=== PATIENT | female | born 1980 | race Caucasian/White ===

== ENCOUNTER 2017-05-11 15:28 | Emergency (ER) | payer MEDICAID ==
--- NOTE | 2017-05-11 16:36 | ED Physician Documentation ---
PD HPI URI - Stated complaint Stated Complaint: FATIGUE/DIARRHEA - Chief complaint Chief Complaint: Abd Pain - History obtained from History obtained from: Patient - History of Present Illness Timing - onset: How many days ago (has had nausea and less appetite, some discomfort with eating for couple of weeks, and then with diarrhea the past 2-3 days. No noted blood nor melena.) Timing duration: Days Timing details: Gradual onset Associated symptoms: NVD. No: Fever, Chills, Sore throat, Dry cough, Dyspnea Contributing factors: No: Sick contact, Travel, Immunocompromised Similar symptoms before: Has not had sx before Recently seen: Not recently seen Review of Systems Constitutional: reports: Fatigue. denies: Fever, Chills, Myalgias Nose: denies: Rhinorrhea / runny nose, Congestion Throat: denies: Sore throat Cardiac: denies: Chest pain / pressure, Palpitations Respiratory: denies: Dyspnea, Cough GI: reports: Nausea, Diarrhea. denies: Abdominal Pain, Abdominal Swelling, Vomiting, Constipation, Hematemesis, Bloody / black stool : denies: Dysuria, Frequency Musculoskeletal: denies: Neck pain, Back pain Neurologic: reports: Generalized weakness. denies: Focal weakness, Numbness, Altered mental status, Headache, Head injury Endocrine: denies: Weight loss, Weight gain, Easy bruising / bleeding Immunocompromised: denies: Immunocompromised PD PAST MEDICAL HISTORY - Past Medical History Past Medical History: Yes Psych: Bipolar disorder - Past Surgical History Past Surgical History: Yes General: EGD - Present Medications Home Medications: Ambulatory Orders Medication Instructions Recorded Confirmed Diphenoxylate HCl/Atropine 1 each PO Q6H PRN #12 tablet 05/11/17 [Diphenoxylate-Atrop 2.5-0.025] Famotidine [Pepcid] 20 mg PO ONCE #30 tablet 05/11/17 Ondansetron Odt [Zofran] 4 mg TL Q6H PRN #15 tablet 05/11/17 chlordiazePOXIDE [Librium] 25 mg PO Q6H PRN #30 capsule 05/11/17 - Allergies Allergies/Adverse Reactions: Allergies Allergy/AdvReac Type Severity Reaction Status Date / Time No Known Drug Allergies Allergy Verified 04/13/13 11:07 - Social History Does the pt smoke?: No Smoking Status: Former smoker Does the pt drink ETOH?: Yes Does the pt have substance abuse?: No - Family History Family history: reports: Non contributory PD ED PE NORMAL - Vitals Vital signs reviewed: Yes - General General: Alert and oriented X 3, Well developed/nourished, Other (glassy eyed but no slurring of speech.) - HEENT HEENT: Ears normal - Cardiac Cardiac: No murmur. No: RRR (regular but fast) - Respiratory Respiratory: No respiratory distress, Clear bilaterally - Abdomen Abdomen: Normal bowel sounds, Soft, Non distended, No organomegaly, Other ( tender in epigastric area without guarding) - Female Female : Deferred - Rectal Rectal: Deferred - Back Back: No CVA TTP - Derm Derm: Normal color, Warm and dry - Extremities Extremities: No deformity, No tenderness to palpate, Normal ROM s pain, No edema , No calf tenderness / cord - Neuro Neuro: Alert and oriented X 3, No motor deficit, Normal speech Eye Opening: Spontaneous Motor: Obeys Commands Verbal: Oriented GCS Score: 15 - Psych Psych: Normal mood Results - Vitals Vitals: Vital Signs - 24 hr 05/11/17 05/11/17 15:36 19:18 Temperature 36.8 C Heart Rate 113 H 80 Respiratory 22 14 Rate Blood Pressure 138/96 H 116/80 O2 Saturation 96 98 Oxygen O2 Source Room air - Labs Labs: Laboratory Tests 05/11/17 05/11/17 15:35 15:35 WBC 3.0 L RBC 4.05 L Hgb 13.9 Hct 41.9 MCV 103.4 H MCH 34.2 H MCHC 33.1 RDW 14.4 Plt Count 106 L MPV 7.9 Neut # 1.5 Lymph # 1.1 L Smyth # 0.2 Eos # 0.0 Baso # 0.0 Absolute Nucleated RBC 0.02 Nucleated RBC % 0.6 Sodium 138 Potassium 3.6 Chloride 100 L Carbon Dioxide 24 Anion Gap 14.0 H BUN 9 Creatinine 0.5 Estimated GFR (MDRD) 139 Glucose 81 Calcium 8.3 L Magnesium 2.1 Total Bilirubin 0.9 AST 144 H ALT 68 H Alkaline Phosphatase 64 Total Protein 7.8 Albumin 4.7 Globulin 3.1 Albumin/Globulin Ratio 1.5 Lipase 23 Ethyl Alcohol 419.6 PD MEDICAL DECISION MAKING - ED course Complexity details: reviewed results, re-evaluated patient (feeling better with fluids and meds. Will give Rx to help with likely withdrawal. Had been to alcohol treatment recently and had 17 weeks sober, per patient. ), considered differential (having upset stomach and diarrhea. Could be viral illness currently too, but stomach is more likely alcoholic gastritis. She initially said she had not drank for several days, but her BA is quite high. She said she might be interested in alcohol detox programs. Unfortunately [employer] is out for the day. I encouraged her to come back tomorrow if still feeling badly to get info about programs. Given info booklet with resources numbers. She says she would stop drinking and is staying with her mom goran. She was reluctant to admit drinking and the initial history given did not include that as an issue. Unfortunately it may not seem she is really ready to want to stop.), d/w patient Departure - Departure Disposition: 01 Home, Self Care Clinical Impression: Nausea, Alcoholism Diarrhea Qualifiers: Diarrhea type: unspecified type Qualified Code(s): R19.7 - Diarrhea, unspecified Gastritis Qualifiers: Gastritis type: alcoholic Chronicity: acute Gastritis bleeding: without bleeding Qualified Code(s): K29.20 - Alcoholic gastritis without bleeding Alcohol intoxication Qualifiers: Complication of substance-induced condition: uncomplicated Qualified Code(s): F10.920 - Alcohol use, unspecified with intoxication, uncomplicated Condition: Stable Record reviewed to determine appropriate education?: Yes Instructions: ED Gastritis Follow-Up: [facility] [Provider Group] Prescriptions: chlordiazePOXIDE [Librium] 25 mg PO Q6H PRN #30 capsule PRN Reason: Anxiety Diphenoxylate HCl/Atropine [Diphenoxylate-Atrop 2.5-0.025] 1 each PO Q6H PRN # 12 tablet PRN Reason: Diarrhea Famotidine [Pepcid] 20 mg PO ONCE #30 tablet Ondansetron Odt [Zofran] 4 mg TL Q6H PRN #15 tablet PRN Reason: Nausea / Vomiting Comments: Drink lots of fluids. No alcohol. For the shakiness and withdrawal symptoms you will have, use Librium 1 or 2 tablets every 6 hours if needed and try to slowly taper down the amount and stretch the interval over the next several days to week. Famotidine daily for reducing stomach acids. Ondansetron if needed for nausea. Use Lomotil if needed for diarrhea. There may be some element of a little stomach virus. However a large part of it is likely irritation of the stomach and intestines from the alcohol. Recheck if not improving over the next few days. Forms: Activity restrictions Discharge Date/Time: 05/11/17 19:25
[2017-05-11] MEDS ORDERED: SODIUM CHLORIDE 0.9% 1,000 ML IV ONE ×2 (16:57→16:58)
[2017-05-11] MEDS ORDERED: ONDANSETRON 4 MG/2 ML VIAL IVP STA (16:57)
[2017-05-11] MEDS ORDERED: DIPHENOX/ATROPINE 2.5/0.025 MG TABLET PO STA (16:58)
[2017-05-11] MEDS ORDERED: FAMOTIDINE 20 MG/50 ML 50 ML IV ONE (16:58)
[2017-05-11 18:09] LABS: ALBUMIN 4.7 g/dL (3.2-5.5); ALBUMIN/GLOBULIN RATIO 1.5 (1.0-2.2); BASOPHILS % (AUTO) 1.1 %; BILIRUBIN,TOTAL 0.9 mg/dL (0.2-1.0); CALCIUM 8.3 mg/dL (8.5-10.3); CREATININE 0.5 mg/dL (0.4-1.0); EOSINOPHILS % (AUTO) 0.2 %; HGB - HEMOGLOBIN 13.9 g/dL (12.0-16.0); LYMPHOCYTES # (AUTO) 1.1 10^3/uL (1.5-3.5); LYMPHOCYTES % (AUTO) 38.5 %; MAGNESIUM 2.1 mg/dL (1.7-2.8); MEAN CORPUSCULAR HEMOGLOBIN 34.2 pg (27.0-31.0); MEAN CORPUSCULAR HGB CONC 33.1 g/dL (32.0-36.0); MEAN CORPUSCULAR VOLUME 103.4 fL (81.0-99.0); MEAN PLATELET VOLUME 7.9 fL (7.9-10.8); MONOCYTES # (AUTO) 0.2 10^3/uL (0.0-1.0); MONOCYTES % (AUTO) 8.2 %; NEUTROPHILS # (AUTO) 1.5 10^3/uL (1.5-6.6); PLT - PLATELET COUNT 106 10^3/uL (130-450); RED BLOOD COUNT 4.05 10^6/uL (4.20-5.40); RED CELL DISTRIBUTION WIDTH 14.4 % (12.0-15.0); TOTAL PROTEIN 7.8 g/dL (6.7-8.2)
[2017-05-11] MEDS ORDERED: ONDANSETRON ODT 4 MG Prepack 2 TL PRN (18:47)
[2017-05-11] MEDS ORDERED: LORazepam 0.5 MG TABLET PO STA (18:47)
[2017-05-11 19:20] VITALS: BP 116/80
== END 2017-05-11 19:25 | disposition home or self-care (01) ==
LOC: ED 15:28
DX: K29.20 Alcoholic gastritis without bleeding (principal); F10.920 Alcohol use, unspecified with intoxication, uncomplicated; R19.7 Diarrhea, unspecified; R11.0 Nausea; Z87.891 Personal history of nicotine dependence
CPT/HCPCS: 36415; 80053; 80320; 83690; 83735; 85025; 96361; 96374; 96375; 99283; A9270

== ENCOUNTER 2019-06-04 19:19 | Outpatient (CLI) | payer SELFPAY | END 2019-06-04 19:20 | disposition home or self-care (01) | LOC: COV 19:19 | PROVIDERS: ATTEND Family Medicine | DX: R50.9 Fever, unspecified (principal); R53.83 Other fatigue; Z20.828 Contact with and (suspected) exposure to other viral communicable diseases | CPT/HCPCS: 81599 ==

== ENCOUNTER 2019-11-07 14:40 | Outpatient (CLI) | payer OTHER | END 2019-11-07 14:41 | disposition home or self-care (01) | LOC: COV 14:40 | PROVIDERS: ATTEND Family Medicine | DX: R50.9 Fever, unspecified (principal); R05 Cough; R06.02 Shortness of breath; M79.10 Myalgia, unspecified site; R53.83 Other fatigue; R19.7 Diarrhea, unspecified; R11.2 Nausea with vomiting, unspecified; Z20.828 Contact with and (suspected) exposure to other viral communicable diseases ==

== ENCOUNTER 2020-03-04 12:50 | Outpatient (CLI) | payer OTHER | END 2020-03-04 23:59 | disposition home or self-care (01) | LOC: COV 12:50 | PROVIDERS: ATTEND Family Medicine | DX: R50.9 Fever, unspecified (principal); R05 Cough; R06.02 Shortness of breath; M79.10 Myalgia, unspecified site; R53.83 Other fatigue; R19.7 Diarrhea, unspecified; R43.8 Other disturbances of smell and taste; R09.81 Nasal congestion; J34.89 Other specified disorders of nose and nasal sinuses; R11.2 Nausea with vomiting, unspecified; Z20.822 Contact with and (suspected) exposure to COVID-19 ==

== ENCOUNTER 2020-03-11 10:54 | Outpatient (CLI) | payer OTHER | END 2020-03-11 10:55 | disposition home or self-care (01) | LOC: COV 10:54 | PROVIDERS: ATTEND Family Medicine | DX: Z20.822 Contact with and (suspected) exposure to COVID-19 (principal) ==